=== PATIENT | male | born 1960 | race Caucasian/White ===

== ENCOUNTER 2019-06-04 13:47 | Emergency (ER) | payer MEDICARE, OTHER ==
[~2019-06-04] VITALS: Ht 188 cm; Wt 72.9 kg
[2019-06-04] MEDS ORDERED: ATOR40TA28 PO (14:19)
[2019-06-04] MEDS ORDERED: ASPI-556 PO (14:19)
[2019-06-04] MEDS ORDERED: DSS100 PO (14:19)
[2019-06-04] MEDS ORDERED: SENN-176 PO (14:19)
[2019-06-04] MEDS ORDERED: RISP1 PO (14:19)
[2019-06-04 15:29] LABS: BASOPHILS % (AUTO) 0.4 % (0.0-2.0); EOSINOPHILS % (AUTO) 0.1 % (1.0-6.0); HEMATOCRIT 46.4 % (41-53); HEMOGLOBIN 15.5 g/dL (13.5-17.5); LYMPHOCYTES # (AUTO) 1.3 K/uL (1.0-4.8); MEAN CORPUSCULAR HEMOGLOBIN 30.2 pg (26.0-34.0); MEAN CORPUSCULAR HGB CONC 33.5 G/dL (31.0-37.0); MEAN CORPUSCULAR VOLUME 90 fL (80-100); MONOCYTES # (AUTO) 0.6 K/uL (0.1-1.0); MONOCYTES % (AUTO) 6.2 % (2.0-9.0); NEUTROPHILS # (AUTO) 7.3 K/uL (1.8-7.7); NEUTROPHILS % (AUTO) 79.3 % (40.0-70.0); PLATELET COUNT (AUTO) 158 K/uL (150-450); RED BLOOD CELL COUNT(AUTO) 5.16 MIL/uL (4.50-5.90); RED CELL DISTRIBUTION WIDTH 14.2 % (11.5-14.5)
[2019-06-04 15:40] LABS: CALCIUM, TOTAL 9.3 mg/dL (8.8-10.5); CREATININE 1.32 mg/dL (0.60-1.30)
[2019-06-04 15:46] LABS: ALBUMIN 3.9 g/dL (3.4-5.0); BILIRUBIN,TOTAL 0.5 mg/dL (0.1-1.0); TOTAL PROTEIN, SERUM 7.1 g/dL (6.4-8.2)
[2019-06-04 19:45] VITALS: BP 128/70
[2019-06-08] MEDS ORDERED: HYDR-3114 PO (10:34)
== END 2019-06-04 20:00 | disposition home or self-care (01) ==
LOC: EMS 13:49
DX: I12.9 Hypertensive chronic kidney disease with stage 1 through stage 4 chronic kidney disease, or unspecified chronic kidney disease (principal); N18.9 Chronic kidney disease, unspecified; R41.0 Disorientation, unspecified; I10 Essential (primary) hypertension; E78.00 Pure hypercholesterolemia, unspecified; F20.9 Schizophrenia, unspecified; F17.210 Nicotine dependence, cigarettes, uncomplicated; Z79.82 Long term (current) use of aspirin
CPT/HCPCS: 70450; 93005

== ENCOUNTER 2019-06-08 09:39 | Inpatient (IN) | payer MEDICARE, MEDICAID ==
[~2019-06-08] VITALS: Ht 188 cm; Wt 79.4 kg
[~2019-06-08 09:39] MED LIST: ASPI-556 PO; ATOR40TA28 PO; DSS100 PO; RISP1 PO; SENN-176 PO
[2019-06-08] MEDS ORDERED: LORazepam 2 MG TABLET PO PRN (10:15)
[2019-06-08] MEDS ORDERED: HALOPERIDOL 5 MG TABLET PO PRN (10:15)
[2019-06-08] MEDS ORDERED: ZOLPIDEM TARTRATE 10 MG TABLET PO PRN (10:15)
[2019-06-08] MEDS ORDERED: HYDR50TA46 PO (10:34)
[2019-06-08] MEDS ORDERED: CLOZ100T29 PO (10:34)
[2019-06-08] MEDS ORDERED: METO50 PO (10:34)
[2019-06-08] MEDS ORDERED: RISP2 PO (10:34)
[2019-06-08] MEDS ORDERED: PRAV40TA4 PO (10:34)
[2019-06-08] MEDS: METOPROLOL TARTRATE 50 MG TABLET PO SCH ×2 (11:00→16:13)
[2019-06-08 11:33] VITALS: BP 159/95
[2019-06-08] MEDS: ASPIRIN 81 MG CHEWABLE TABLET PO SCH (12:01)
[2019-06-08] MEDS: RisperiDONE 2 MG TABLET PO SCH ×2 (12:01→16:12)
[2019-06-08] MEDS ORDERED: INFLUENZA VIRUS VACCINE QVS 2019-20 (3YR+)/PF 60 MCG/0.5 ML SYRINGE IM ONE (12:30)
[2019-06-08 16:11] VITALS: BP 115/71
[2019-06-08] MEDS: DOCUSATE SODIUM 100 MG CAPSULE PO SCH (17:00)
[2019-06-08] MEDS: ATORVASTATIN CALCIUM 40 MG TABLET PO SCH (21:05)
[2019-06-09 06:15] VITALS: BP 125/75
[2019-06-09 07:57] LABS: BASOPHILS % (AUTO) 0.5 % (0.0-2.0); EOSINOPHILS % (AUTO) 0.9 % (1.0-6.0); HEMATOCRIT 39.7 % (41-53); HEMOGLOBIN 13.3 g/dL (13.5-17.5); LYMPHOCYTES # (AUTO) 1.5 K/uL (1.0-4.8); LYMPHOCYTES % (AUTO) 23.7 % (22.0-44.0); MEAN CORPUSCULAR HEMOGLOBIN 30.1 pg (26.0-34.0); MEAN CORPUSCULAR HGB CONC 33.4 G/dL (31.0-37.0); MEAN CORPUSCULAR VOLUME 90 fL (80-100); MONOCYTES # (AUTO) 0.6 K/uL (0.1-1.0); MONOCYTES % (AUTO) 9.6 % (2.0-9.0); NEUTROPHILS # (AUTO) 4.2 K/uL (1.8-7.7); NEUTROPHILS % (AUTO) 65.3 % (40.0-70.0); PLATELET COUNT (AUTO) 116 K/uL (150-450); RED CELL DISTRIBUTION WIDTH 14.3 % (11.5-14.5)
[2019-06-09 08:34] VITALS: BP 121/69
[2019-06-09 08:43] LABS: ALANINE AMINOTRANSFERASE 15 U/L (12-78); ALBUMIN 3.2 g/dL (3.4-5.0); ALKALINE PHOSPHATASE 87 U/L (46-116); ANION GAP 8 mmol/L (8-16); ASPARTATE AMINOTRANSFERASE 13 U/L (15-37); BILIRUBIN,TOTAL 0.3 mg/dL (0.1-1.0); CALCIUM, TOTAL 9.1 mg/dL (8.8-10.5); CARBON DIOXIDE 26 mmol/L (22-29); CHLORIDE 106 mmol/L (98-107); CHOL/HDL RATIO 2.7 (4.2-7.3); CHOLESTEROL 115 mg/dL (131-200); CREATINE KINASE, TOTAL ONLY 95 U/L (39-308); CREATININE 1.04 mg/dL (0.60-1.30); FREE T4 (FREE THYROXINE) 1.65 ng/dL (0.76-1.46); GLOMERULAR FILTR. RATE CALC > 60 mL/min (>60); GLUCOSE,RANDOM 89 mg/dL (70-110); HDL CHOLESTEROL 43 mg/dL (40-60); LDL CHOL (CALC.) 57 mg/dL (0-130); POTASSIUM 3.9 mmol/L (3.5-5.1); SODIUM SERUM 140 mmol/L (136-145); TOTAL PROTEIN, SERUM 5.8 g/dL (6.4-8.2); TRIGLYCERIDES 75 mg/dL (15-150); UREA NITROGEN, BLOOD 14 mg/dL (7-18)
[2019-06-09] MEDS: RisperiDONE 2 MG TABLET PO SCH ×2 (09:16→16:25)
[2019-06-09] MEDS: ASPIRIN 81 MG CHEWABLE TABLET PO SCH (09:16)
[2019-06-09] MEDS: METOPROLOL TARTRATE 50 MG TABLET PO SCH ×2 (09:16→16:25)
[2019-06-09] MEDS: DOCUSATE SODIUM 100 MG CAPSULE PO SCH ×2 (09:16→16:25)
[2019-06-09 16:10] VITALS: BP 109/66
[2019-06-09] MEDS: ATORVASTATIN CALCIUM 40 MG TABLET PO SCH (20:39)
[2019-06-10 03:41] VITALS: BP 112/69
[2019-06-10 08:20] VITALS: BP_SYST 120; BP_SYST 125; BP_DIAS 63; BP_DIAS 76
[2019-06-10] MEDS: RisperiDONE 2 MG TABLET PO SCH ×2 (08:44→16:46)
[2019-06-10] MEDS: DOCUSATE SODIUM 100 MG CAPSULE PO SCH ×2 (08:44→16:46)
[2019-06-10] MEDS: METOPROLOL TARTRATE 50 MG TABLET PO SCH ×2 (08:44→16:46)
[2019-06-10] MEDS: ASPIRIN 81 MG CHEWABLE TABLET PO SCH (08:44)
[2019-06-10 16:13] VITALS: BP 110/62
[2019-06-10] MEDS: ATORVASTATIN CALCIUM 40 MG TABLET PO SCH (20:33)
[2019-06-11 06:23] VITALS: BP 125/76
[2019-06-11] MEDS: DOCUSATE SODIUM 100 MG CAPSULE PO SCH ×2 (08:20→16:13)
[2019-06-11] MEDS: ASPIRIN 81 MG CHEWABLE TABLET PO SCH (08:20)
[2019-06-11] MEDS: RisperiDONE 2 MG TABLET PO SCH ×2 (08:20→16:13)
[2019-06-11 08:25] VITALS: BP 119/68
[2019-06-11] MEDS: METOPROLOL TARTRATE 50 MG TABLET PO SCH ×2 (08:26→16:13)
[2019-06-11 16:08] VITALS: BP 131/81
[2019-06-11] MEDS: ATORVASTATIN CALCIUM 40 MG TABLET PO SCH (21:14)
[2019-06-12 06:03] VITALS: BP 118/79
[2019-06-12] MEDS: ASPIRIN 81 MG CHEWABLE TABLET PO SCH (08:11)
[2019-06-12] MEDS: RisperiDONE 2 MG TABLET PO SCH ×2 (08:11→17:20)
[2019-06-12] MEDS: DOCUSATE SODIUM 100 MG CAPSULE PO SCH ×2 (08:11→17:20)
[2019-06-12] MEDS: METOPROLOL TARTRATE 50 MG TABLET PO SCH ×2 (08:11→17:20)
[2019-06-12 08:13] VITALS: BP 109/69
[2019-06-12 16:10] VITALS: BP 106/67
[2019-06-12] MEDS: ATORVASTATIN CALCIUM 40 MG TABLET PO SCH (21:11)
[2019-06-13 01:28] VITALS: BP 129/76
[2019-06-13 08:06] LABS: ALANINE AMINOTRANSFERASE 17 U/L (12-78); ALBUMIN 3.5 g/dL (3.4-5.0); ALKALINE PHOSPHATASE 92 U/L (46-116); ANION GAP 6 mmol/L (8-16); ASPARTATE AMINOTRANSFERASE 11 U/L (15-37); BILIRUBIN,TOTAL 0.4 mg/dL (0.1-1.0); CALCIUM, TOTAL 9.4 mg/dL (8.8-10.5); CARBON DIOXIDE 30 mmol/L (22-29); CHLORIDE 106 mmol/L (98-107); CREATINE KINASE, TOTAL ONLY 47 U/L (39-308); CREATININE 0.98 mg/dL (0.60-1.30); GLOMERULAR FILTR. RATE CALC > 60 mL/min (>60); GLUCOSE,RANDOM 85 mg/dL (70-110); POTASSIUM 4.1 mmol/L (3.5-5.1); SODIUM SERUM 142 mmol/L (136-145); TOTAL PROTEIN, SERUM 6.5 g/dL (6.4-8.2); UREA NITROGEN, BLOOD 15 mg/dL (7-18)
[2019-06-13 08:23] VITALS: BP 130/69
[2019-06-13] MEDS: METOPROLOL TARTRATE 50 MG TABLET PO SCH ×2 (08:43→16:28)
[2019-06-13] MEDS: DOCUSATE SODIUM 100 MG CAPSULE PO SCH ×2 (08:43→16:28)
[2019-06-13] MEDS: ASPIRIN 81 MG CHEWABLE TABLET PO SCH (08:43)
[2019-06-13] MEDS: RisperiDONE 2 MG TABLET PO SCH ×2 (08:44→16:28)
[2019-06-13 16:14] VITALS: BP 115/60
[2019-06-13] MEDS: ATORVASTATIN CALCIUM 40 MG TABLET PO SCH (20:37)
[2019-06-14 02:21] VITALS: BP 113/70
[2019-06-14 09:02] VITALS: BP 122/68
[2019-06-14] MEDS: DOCUSATE SODIUM 100 MG CAPSULE PO SCH ×2 (09:02→16:13)
[2019-06-14] MEDS: ASPIRIN 81 MG CHEWABLE TABLET PO SCH (09:02)
[2019-06-14] MEDS: RisperiDONE 2 MG TABLET PO SCH ×2 (09:02→16:13)
[2019-06-14] MEDS: METOPROLOL TARTRATE 50 MG TABLET PO SCH ×2 (09:02→16:13)
[2019-06-14 16:12] VITALS: BP 109/60
[2019-06-14] MEDS: ATORVASTATIN CALCIUM 40 MG TABLET PO SCH (20:11)
[2019-06-15 08:27] VITALS: BP 111/66
[2019-06-15] MEDS: DOCUSATE SODIUM 100 MG CAPSULE PO SCH ×2 (08:43→16:36)
[2019-06-15] MEDS: METOPROLOL TARTRATE 50 MG TABLET PO SCH ×2 (08:43→16:36)
[2019-06-15] MEDS: RisperiDONE 2 MG TABLET PO SCH ×2 (08:43→16:36)
[2019-06-15] MEDS: ASPIRIN 81 MG CHEWABLE TABLET PO SCH (08:43)
[2019-06-15 16:19] VITALS: BP 112/64
[2019-06-15] MEDS: ATORVASTATIN CALCIUM 40 MG TABLET PO SCH (21:16)
[2019-06-16 00:05] VITALS: BP 138/84
[2019-06-16 08:31] VITALS: BP 118/66
[2019-06-16] MEDS: RisperiDONE 2 MG TABLET PO SCH ×2 (09:01→16:26)
[2019-06-16] MEDS: METOPROLOL TARTRATE 50 MG TABLET PO SCH ×2 (09:01→16:26)
[2019-06-16] MEDS: DOCUSATE SODIUM 100 MG CAPSULE PO SCH ×2 (09:02→16:26)
[2019-06-16] MEDS: ASPIRIN 81 MG CHEWABLE TABLET PO SCH (09:02)
[2019-06-16 16:20] VITALS: BP 124/70
[2019-06-16] MEDS: ATORVASTATIN CALCIUM 40 MG TABLET PO SCH (20:46)
[2019-06-17 02:10] VITALS: BP 123/68
[2019-06-17 08:29] VITALS: BP 109/66
[2019-06-17] MEDS: DOCUSATE SODIUM 100 MG CAPSULE PO SCH ×2 (08:47→16:36)
[2019-06-17] MEDS: ASPIRIN 81 MG CHEWABLE TABLET PO SCH (08:47)
[2019-06-17] MEDS: RisperiDONE 2 MG TABLET PO SCH ×2 (08:47→16:36)
[2019-06-17] MEDS: METOPROLOL TARTRATE 50 MG TABLET PO SCH ×2 (08:48→16:36)
[2019-06-17 17:48] VITALS: BP 119/71
[2019-06-17] MEDS: ATORVASTATIN CALCIUM 40 MG TABLET PO SCH (20:19)
[2019-06-18 07:19] VITALS: BP 120/81
[2019-06-18] MEDS: RisperiDONE 2 MG TABLET PO SCH ×2 (08:58→16:39)
[2019-06-18] MEDS: DOCUSATE SODIUM 100 MG CAPSULE PO SCH ×2 (08:58→16:39)
[2019-06-18] MEDS: ASPIRIN 81 MG CHEWABLE TABLET PO SCH (08:58)
[2019-06-18] MEDS: METOPROLOL TARTRATE 50 MG TABLET PO SCH ×2 (08:59→16:39)
[2019-06-18 11:07] VITALS: BP 107/54
[2019-06-18 16:28] VITALS: BP 101/63
[2019-06-18] MEDS: ATORVASTATIN CALCIUM 40 MG TABLET PO SCH (20:35)
[2019-06-19 06:34] VITALS: BP 102/60
[2019-06-19 08:31] VITALS: BP 109/65
[2019-06-19] MEDS: RisperiDONE 2 MG TABLET PO SCH ×2 (08:59→17:10)
[2019-06-19] MEDS: METOPROLOL TARTRATE 50 MG TABLET PO SCH ×2 (08:59→17:10)
[2019-06-19] MEDS: ASPIRIN 81 MG CHEWABLE TABLET PO SCH (08:59)
[2019-06-19] MEDS: DOCUSATE SODIUM 100 MG CAPSULE PO SCH ×2 (08:59→17:10)
[2019-06-19 17:11] VITALS: BP 120/75
[2019-06-19] MEDS: ATORVASTATIN CALCIUM 40 MG TABLET PO SCH (20:34)
[2019-06-20 00:23] VITALS: BP 118/70
[2019-06-20 08:24] VITALS: BP 120/68
[2019-06-20] MEDS: ASPIRIN 81 MG CHEWABLE TABLET PO SCH (08:24)
[2019-06-20] MEDS: DOCUSATE SODIUM 100 MG CAPSULE PO SCH ×2 (08:25→17:11)
[2019-06-20] MEDS: RisperiDONE 2 MG TABLET PO SCH ×2 (08:25→17:11)
[2019-06-20] MEDS: METOPROLOL TARTRATE 50 MG TABLET PO SCH ×2 (08:25→17:11)
[2019-06-20 17:11] VITALS: BP 115/72
[2019-06-20] MEDS: ATORVASTATIN CALCIUM 40 MG TABLET PO SCH (20:38)
[2019-06-21 01:20] VITALS: BP 121/68
[2019-06-21 08:31] VITALS: BP 122/70
[2019-06-21] MEDS: RisperiDONE 2 MG TABLET PO SCH ×2 (08:58→16:29)
[2019-06-21] MEDS: DOCUSATE SODIUM 100 MG CAPSULE PO SCH ×2 (08:58→16:29)
[2019-06-21] MEDS: METOPROLOL TARTRATE 50 MG TABLET PO SCH ×2 (08:58→16:29)
[2019-06-21] MEDS: ASPIRIN 81 MG CHEWABLE TABLET PO SCH (08:58)
[2019-06-21 16:08] VITALS: BP 108/63
[2019-06-21] MEDS: ATORVASTATIN CALCIUM 40 MG TABLET PO SCH (20:40)
[2019-06-22 07:09] VITALS: BP 110/68
[2019-06-22 08:39] VITALS: BP 112/76
[2019-06-22] MEDS: METOPROLOL TARTRATE 50 MG TABLET PO SCH (08:46)
[2019-06-22] MEDS: DOCUSATE SODIUM 100 MG CAPSULE PO SCH (08:46)
[2019-06-22] MEDS: ASPIRIN 81 MG CHEWABLE TABLET PO SCH (08:46)
[2019-06-22] MEDS: RisperiDONE 2 MG TABLET PO SCH (08:47)
[2019-06-22] MEDS ORDERED: METO50 PO ×2 (09:01→09:03)
== END 2019-06-22 13:25 | disposition home or self-care (01) | DRG 885 ==
LOC: B2X 10:45
PROVIDERS: ADMIT Psychiatry & Neurology Psychiatry; ATTEND Psychiatry & Neurology Psychiatry
DX: F20.0 Paranoid schizophrenia (principal); N18.9 Chronic kidney disease, unspecified; G91.9 Hydrocephalus, unspecified; D64.9 Anemia, unspecified; D69.6 Thrombocytopenia, unspecified; E78.5 Hyperlipidemia, unspecified; I12.9 Hypertensive chronic kidney disease with stage 1 through stage 4 chronic kidney disease, or unspecified chronic kidney disease; J44.9 Chronic obstructive pulmonary disease, unspecified; K59.00 Constipation, unspecified; Z86.73 Personal history of transient ischemic attack (TIA), and cerebral infarction without residual deficits; Z98.2 Presence of cerebrospinal fluid drainage device; Z79.899 Other long term (current) drug therapy; Z28.21 Immunization not carried out because of patient refusal
CPT/HCPCS: 70450; 80074; 83735; 84439; 84443; 90686; 93005

== ENCOUNTER 2019-06-27 11:06 | Emergency (ER) | payer MEDICARE, OTHER ==
[~2019-06-27] VITALS: Ht 182.9 cm; Wt 79.5 kg
[~2019-06-27 11:06] MED LIST changes: +METO50 PO; -RISP1 PO; +RISP2 PO; -SENN-176 PO
[2019-06-27 12:50] LABS: BASOPHILS % (AUTO) 0.3 % (0.0-2.0); EOSINOPHILS % (AUTO) 0.6 % (1.0-6.0); HEMATOCRIT 43.9 % (41-53); HEMOGLOBIN 14.6 g/dL (13.5-17.5); LYMPHOCYTES # (AUTO) 1.4 K/uL (1.0-4.8); LYMPHOCYTES % (AUTO) 17.4 % (22.0-44.0); MEAN CORPUSCULAR HEMOGLOBIN 30.2 pg (26.0-34.0); MEAN CORPUSCULAR HGB CONC 33.3 G/dL (31.0-37.0); MEAN CORPUSCULAR VOLUME 91 fL (80-100); MONOCYTES # (AUTO) 0.6 K/uL (0.1-1.0); MONOCYTES % (AUTO) 7.4 % (2.0-9.0); NEUTROPHILS # (AUTO) 6.1 K/uL (1.8-7.7); NEUTROPHILS % (AUTO) 74.3 % (40.0-70.0); PLATELET COUNT (AUTO) 169 K/uL (150-450); RED BLOOD CELL COUNT(AUTO) 4.84 MIL/uL (4.50-5.90); RED CELL DISTRIBUTION WIDTH 14.6 % (11.5-14.5)
[2019-06-27 13:00] LABS: ANION GAP 6 mmol/L (8-16); CALCIUM, TOTAL 9.2 mg/dL (8.8-10.5); CARBON DIOXIDE 29 mmol/L (22-29); CHLORIDE 108 mmol/L (98-107); CREATININE 1.12 mg/dL (0.60-1.30); GLOMERULAR FILTR. RATE CALC > 60 mL/min (>60); GLUCOSE,RANDOM 101 mg/dL (70-110); POTASSIUM 4.6 mmol/L (3.5-5.1); SODIUM SERUM 143 mmol/L (136-145); UREA NITROGEN, BLOOD 10 mg/dL (7-18)
[2019-06-27 13:06] LABS: ALANINE AMINOTRANSFERASE 23 U/L (12-78); ALBUMIN 3.6 g/dL (3.4-5.0); ALKALINE PHOSPHATASE 115 U/L (46-116); ASPARTATE AMINOTRANSFERASE 12 U/L (15-37); BILIRUBIN,TOTAL 0.4 mg/dL (0.1-1.0); TOTAL PROTEIN, SERUM 7.3 g/dL (6.4-8.2)
[2019-06-27 20:50] VITALS: BP 128/76
== END 2019-06-27 21:48 | disposition home or self-care (01) ==
LOC: EMS 11:07
DX: F20.9 Schizophrenia, unspecified (principal); I10 Essential (primary) hypertension; E78.00 Pure hypercholesterolemia, unspecified; F17.210 Nicotine dependence, cigarettes, uncomplicated
CPT/HCPCS: 36415; 80053; 85025; 99285; G0480

== ENCOUNTER 2020-02-07 13:58 | Emergency (ER) | payer MEDICARE, OTHER ==
[~2020-02-07] VITALS: Ht 188 cm; Wt 95.5 kg
[2020-02-07 15:19] LABS: BASOPHILS % (AUTO) 0.5 % (0.0-2.0); EOSINOPHILS % (AUTO) 0.7 % (1.0-6.0); HEMATOCRIT 35.7 % (41-53); HEMOGLOBIN 12.2 g/dL (13.5-17.5); LYMPHOCYTES # (AUTO) 1.3 K/uL (1.0-4.8); LYMPHOCYTES % (AUTO) 20.1 % (22.0-44.0); MEAN CORPUSCULAR HEMOGLOBIN 30.5 pg (26.0-34.0); MEAN CORPUSCULAR HGB CONC 34.2 G/dL (31.0-37.0); MEAN CORPUSCULAR VOLUME 89 fL (80-100); MONOCYTES # (AUTO) 0.6 K/uL (0.1-1.0); MONOCYTES % (AUTO) 8.8 % (2.0-9.0); NEUTROPHILS # (AUTO) 4.4 K/uL (1.8-7.7); NEUTROPHILS % (AUTO) 69.9 % (40.0-70.0); PLATELET COUNT (AUTO) 148 K/uL (150-450); RED CELL DISTRIBUTION WIDTH 17.8 % (11.5-14.5)
[2020-02-07 15:34] LABS: ANION GAP 7 mmol/L (8-16); CALCIUM, TOTAL 8.6 mg/dL (8.8-10.5); CARBON DIOXIDE 28 mmol/L (22-29); CHLORIDE 99 mmol/L (98-107); CREATININE 0.87 mg/dL (0.60-1.30); GLOMERULAR FILTR. RATE CALC > 60 mL/min (>60); GLUCOSE,RANDOM 124 mg/dL (70-110); SODIUM SERUM 134 mmol/L (136-145); UREA NITROGEN, BLOOD 14 mg/dL (7-18)
[2020-02-07 15:37] LABS: ALANINE AMINOTRANSFERASE 16 U/L (12-78); ALBUMIN 3.2 g/dL (3.4-5.0); ALKALINE PHOSPHATASE 70 U/L (46-116); ASPARTATE AMINOTRANSFERASE 11 U/L (15-37); BILIRUBIN,TOTAL 0.3 mg/dL (0.1-1.0); TOTAL PROTEIN, SERUM 6.6 g/dL (6.4-8.2)
[2020-02-07] MEDS ORDERED: LORazepam 1 MG TABLET PO ONE (17:30)
[2020-02-07] MEDS ORDERED: DiphenhydrAMINE HCL 25 MG CAPSULE PO ONE (17:30)
[2020-02-07] MEDS ORDERED: OLANZapine 5 MG TABLET PO ONE (17:30)
[2020-02-07] MEDS ORDERED: ASCO500 PO (17:37)
[2020-02-07] MEDS ORDERED: TRAZ-252 PO (17:37)
[2020-02-07] MEDS ORDERED: ASPI-728 PO (17:37)
[2020-02-07] MEDS ORDERED: DIVA500T52 PO (17:37)
[2020-02-07 18:20] LABS: VALPROIC ACID 70 mcg/mL (50-100)
[2020-02-07 19:16] VITALS: BP 132/69
== END 2020-02-07 20:03 | disposition home or self-care (01) ==
LOC: EMS 14:08
DX: F25.9 Schizoaffective disorder, unspecified (principal); F17.210 Nicotine dependence, cigarettes, uncomplicated; I11.9 Hypertensive heart disease without heart failure
CPT/HCPCS: 36415; 70450; 71045; 80053; 80164; 84484; 85025; 93005; 99285; G0480

== ENCOUNTER 2020-05-26 12:26 | Inpatient (IN) | payer MEDICARE, MEDICAID ==
[~2020-05-26] VITALS: Ht 188 cm; Wt 78.6 kg
[~2020-05-26 12:26] MED LIST changes: +ASCO500 PO; -ASPI-556 PO; +ASPI-728 PO; -ATOR40TA28 PO; +DIVA-80 PO; -DSS100 PO; -METO50 PO; -RISP2 PO; +TRAZ-252 PO
[2020-05-26] MEDS ORDERED: HALOPERIDOL 5 MG TABLET PO PRN (14:45)
[2020-05-26] MEDS ORDERED: LORazepam 2 MG TABLET PO PRN (14:45)
[2020-05-26] MEDS ORDERED: ZOLPIDEM TARTRATE 10 MG TABLET PO PRN (14:45)
[2020-05-27 01:00] VITALS: BP 121/75
[2020-05-27] MEDS ORDERED: PNEUMOCOCCAL VACCINE POLYVALENT 0.5 ML VIAL [PPSV23] IM ONE (01:45)
[2020-05-27 10:21] VITALS: BP 142/63
[2020-05-27 16:06] VITALS: BP 109/70
[2020-05-27] MEDS: RisperiDONE 2 MG TABLET PO SCH (16:24)
[2020-05-27] MEDS: TraZODone HCL 50 MG TABLET PO SCH (20:45)
[2020-05-27] MEDS: DIVALPROEX SODIUM 500 MG DR TABLET PO SCH (20:45)
[2020-05-28 02:46] VITALS: BP 130/80
[2020-05-28 08:23] VITALS: BP 126/74
[2020-05-28] MEDS: RisperiDONE 2 MG TABLET PO SCH ×2 (08:39→16:31)
[2020-05-28] MEDS ORDERED: OMEPRAZOLE 20 MG CAPSULE PO PRN (08:45)
[2020-05-28] MEDS ORDERED: LOPERAMIDE HCL 2 MG CAPSULE PO PRN (08:45)
[2020-05-28] MEDS ORDERED: IBUPROFEN 600 MG TABLET PO PRN (08:45)
[2020-05-28] MEDS ORDERED: ONDANSETRON HCL 4 MG TABLET PO PRN (08:45)
[2020-05-28] MEDS ORDERED: BENZOCAINE/MENTHOL LOZENGE PO PRN (08:45)
[2020-05-28] MEDS ORDERED: MAGNESIUM HYDROXIDE SUSPENSION 30 ML UDCUP PO PRN (08:45)
[2020-05-28] MEDS ORDERED: ALBUTEROL SULFATE HFA 90 MCG/PUFF 8 GM INHALER IH PRN (08:45)
[2020-05-28] MEDS ORDERED: MAG HYDROX/AL HYDROX/SIMETH ES 30 ML SUSPENSION UDCUP PO PRN (08:45)
[2020-05-28] MEDS ORDERED: DOCUSATE SODIUM 100 MG CAPSULE PO PRN (08:45)
[2020-05-28] MEDS ORDERED: CloNIDine HCL 0.1 MG TABLET PO PRN (08:45)
[2020-05-28] MEDS ORDERED: PETROLATUM,WHITE 28 GM JELLY TP PRN (08:45)
[2020-05-28] MEDS ORDERED: ACETAMINOPHEN 325 MG TABLET PO PRN (08:45)
[2020-05-28] MEDS ORDERED: BACITRACIN 28 GM OINTMENT TP PRN (08:45)
[2020-05-28 16:10] VITALS: BP 104/64
[2020-05-28] MEDS: TraZODone HCL 50 MG TABLET PO SCH (20:32)
[2020-05-28] MEDS: DIVALPROEX SODIUM 500 MG DR TABLET PO SCH (20:32)
[2020-05-29 05:37] VITALS: BP 112/71
[2020-05-29 07:53] LABS: BASOPHILS % (AUTO) 0.3 % (0.0-2.0); EOSINOPHILS % (AUTO) 2.2 % (1.0-6.0); HEMATOCRIT 40.7 % (41-53); HEMOGLOBIN 13.6 g/dL (13.5-17.5); LYMPHOCYTES # (AUTO) 1.4 K/uL (1.0-4.8); LYMPHOCYTES % (AUTO) 30.8 % (22.0-44.0); MEAN CORPUSCULAR HEMOGLOBIN 31.2 pg (26.0-34.0); MEAN CORPUSCULAR HGB CONC 33.5 G/dL (31.0-37.0); MEAN CORPUSCULAR VOLUME 93 fL (80-100); MONOCYTES # (AUTO) 0.4 K/uL (0.1-1.0); MONOCYTES % (AUTO) 8.9 % (2.0-9.0); NEUTROPHILS # (AUTO) 2.6 K/uL (1.8-7.7); NEUTROPHILS % (AUTO) 57.8 % (40.0-70.0); PLATELET COUNT (AUTO) 126 K/uL (150-450); RED BLOOD CELL COUNT(AUTO) 4.37 MIL/uL (4.50-5.90); RED CELL DISTRIBUTION WIDTH 13.7 % (11.5-14.5)
[2020-05-29] MEDS: RisperiDONE 2 MG TABLET PO SCH ×2 (08:12→16:37)
[2020-05-29 08:19] LABS: ALANINE AMINOTRANSFERASE 16 U/L (12-78); ALBUMIN 3.2 g/dL (3.4-5.0); ALKALINE PHOSPHATASE 70 U/L (46-116); ANION GAP 2 mmol/L (8-16); ASPARTATE AMINOTRANSFERASE 11 U/L (15-37); BILIRUBIN,TOTAL 0.3 mg/dL (0.1-1.0); CALCIUM, TOTAL 8.8 mg/dL (8.8-10.5); CARBON DIOXIDE 30 mmol/L (22-29); CHLORIDE 107 mmol/L (98-107); CREATININE 0.95 mg/dL (0.60-1.30); GLOMERULAR FILTR. RATE CALC > 60 mL/min (>60); GLUCOSE,RANDOM 77 mg/dL (70-110); PHOSPHORUS 3.3 mg/dL (2.5-4.9); POTASSIUM 4.2 mmol/L (3.5-5.1); SODIUM SERUM 139 mmol/L (136-145); TOTAL PROTEIN, SERUM 6.1 g/dL (6.4-8.2); UREA NITROGEN, BLOOD 11 mg/dL (7-18)
[2020-05-29 16:05] VITALS: BP 120/67
[2020-05-29] MEDS: TraZODone HCL 50 MG TABLET PO SCH (20:37)
[2020-05-29] MEDS: DIVALPROEX SODIUM 500 MG DR TABLET PO SCH (20:37)
[2020-05-30 00:08] VITALS: BP 118/69
[2020-05-30] MEDS: RisperiDONE 2 MG TABLET PO SCH ×2 (08:33→16:37)
[2020-05-30 08:49] VITALS: BP 115/65
[2020-05-30 16:20] VITALS: BP 111/60
[2020-05-30] MEDS: TraZODone HCL 50 MG TABLET PO SCH (20:37)
[2020-05-30] MEDS: DIVALPROEX SODIUM 500 MG DR TABLET PO SCH (20:37)
[2020-05-31 00:44] VITALS: BP 110/69
[2020-05-31] MEDS: RisperiDONE 2 MG TABLET PO SCH ×2 (09:01→16:31)
[2020-05-31 09:12] VITALS: BP 105/62
[2020-05-31] MEDS: TraZODone HCL 50 MG TABLET PO SCH (20:46)
[2020-05-31] MEDS: DIVALPROEX SODIUM 500 MG DR TABLET PO SCH (20:46)
[2020-06-01 05:22] VITALS: BP 107/61
[2020-06-01 08:51] VITALS: BP 116/67
[2020-06-01] MEDS: RisperiDONE 2 MG TABLET PO SCH ×2 (09:19→16:39)
[2020-06-01 16:10] VITALS: BP 122/69
[2020-06-01] MEDS: TraZODone HCL 50 MG TABLET PO SCH (20:55)
[2020-06-01] MEDS: DIVALPROEX SODIUM 500 MG DR TABLET PO SCH (20:55)
[2020-06-02 00:18] VITALS: BP 124/70
[2020-06-02 07:44] LABS: CHOL/HDL RATIO 3.6 (4.2-7.3)
[2020-06-02 08:15] VITALS: BP 110/74
[2020-06-02] MEDS: RisperiDONE 2 MG TABLET PO SCH ×2 (08:19→16:38)
[2020-06-02 16:07] VITALS: BP 125/75
[2020-06-02] MEDS: TraZODone HCL 50 MG TABLET PO SCH (20:30)
[2020-06-02] MEDS: DIVALPROEX SODIUM 500 MG DR TABLET PO SCH (20:30)
[2020-06-03 06:13] VITALS: BP 102/61
[2020-06-03 08:09] VITALS: BP 106/64
[2020-06-03] MEDS: RisperiDONE 2 MG TABLET PO SCH ×2 (08:30→16:33)
[2020-06-03 16:22] VITALS: BP 119/69
[2020-06-03] MEDS: TraZODone HCL 50 MG TABLET PO SCH (20:32)
[2020-06-03] MEDS: DIVALPROEX SODIUM 500 MG DR TABLET PO SCH (20:32)
[2020-06-04 04:00] VITALS: BP 118/81
[2020-06-04 08:18] VITALS: BP 112/60
[2020-06-04] MEDS: RisperiDONE 2 MG TABLET PO SCH ×2 (08:23→17:09)
[2020-06-04 16:06] VITALS: BP 116/71
[2020-06-04] MEDS ORDERED: NICOTINE POLACRILEX 2 MG LOZENGE PO PRN (19:45)
[2020-06-04] MEDS: DIVALPROEX SODIUM 500 MG DR TABLET PO SCH (20:40)
[2020-06-04] MEDS: TraZODone HCL 50 MG TABLET PO SCH (20:40)
[2020-06-05 06:00] VITALS: BP 112/64
[2020-06-05 08:16] VITALS: BP 107/68
[2020-06-05] MEDS: RisperiDONE 2 MG TABLET PO SCH ×2 (08:24→16:32)
[2020-06-05 17:10] VITALS: BP 117/64
[2020-06-05] MEDS: TraZODone HCL 50 MG TABLET PO SCH (20:29)
[2020-06-05] MEDS: DIVALPROEX SODIUM 500 MG DR TABLET PO SCH (20:30)
[2020-06-06 04:34] VITALS: BP 110/62
[2020-06-06 08:21] VITALS: BP 131/80
[2020-06-06] MEDS: RisperiDONE 2 MG TABLET PO SCH ×2 (09:53→16:34)
[2020-06-06 16:06] VITALS: BP 107/67
[2020-06-06] MEDS: DIVALPROEX SODIUM 500 MG DR TABLET PO SCH (20:29)
[2020-06-06] MEDS: TraZODone HCL 50 MG TABLET PO SCH (20:29)
[2020-06-07 01:09] VITALS: BP 110/64
[2020-06-07 08:10] VITALS: BP 109/58
[2020-06-07] MEDS: RisperiDONE 2 MG TABLET PO SCH ×2 (09:15→16:26)
[2020-06-07 16:25] VITALS: BP 107/60
[2020-06-07] MEDS: DIVALPROEX SODIUM 500 MG DR TABLET PO SCH (20:29)
[2020-06-07] MEDS: TraZODone HCL 50 MG TABLET PO SCH (20:29)
[2020-06-08 04:53] VITALS: BP 120/59
[2020-06-08 07:57] LABS: COVID AG,FIA SOURCE NASOPHARYNGEAL
[2020-06-08 08:36] VITALS: BP 119/82
[2020-06-08] MEDS: RisperiDONE 2 MG TABLET PO SCH (09:21)
[2020-06-08] MEDS ORDERED: RISP2TAB23 PO (12:22)
== END 2020-06-08 15:30 | DRG 885 ==
LOC: EMS 12:28 → B2X 14:41
PROVIDERS: ADMIT Psychiatry & Neurology Psychiatry; ATTEND Psychiatry & Neurology Psychiatry
DX: F25.9 Schizoaffective disorder, unspecified (principal); N18.9 Chronic kidney disease, unspecified; F10.231 Alcohol dependence with withdrawal delirium; I12.9 Hypertensive chronic kidney disease with stage 1 through stage 4 chronic kidney disease, or unspecified chronic kidney disease; F22 Delusional disorders; E78.00 Pure hypercholesterolemia, unspecified; E78.5 Hyperlipidemia, unspecified; G47.00 Insomnia, unspecified; K59.00 Constipation, unspecified; F41.9 Anxiety disorder, unspecified; F19.10 Other psychoactive substance abuse, uncomplicated; Z72.0 Tobacco use; Z86.73 Personal history of transient ischemic attack (TIA), and cerebral infarction without residual deficits; Z79.82 Long term (current) use of aspirin; Z79.899 Other long term (current) drug therapy; Z03.818 Encounter for observation for suspected exposure to other biological agents ruled out
CPT/HCPCS: 83735; 84100; 87426